=== PATIENT | female | born 1975 | race Caucasian/White ===

== ENCOUNTER 2016-10-27 10:06 | Emergency (ER) | payer OTHER ==
[~2016-10-27] VITALS: Ht 162.6 cm; Wt 75.3 kg
[2016-10-27 10:10] VITALS: BP 136/76
[2016-10-27] MEDS ORDERED: ACET-1082 PO (10:13)
[2016-10-27] MEDS ORDERED: IND20 PO (10:13)
--- NOTE | 2016-10-27 10:16 | NUR ---
Patient to bed 05.
--- NOTE | 2016-10-27 10:17 | NUR ---
40/F BIB DAUGHTER C/O RIGHT SIDED CHEST PAIN RADIAING TO RIGHT SHOULDER & R BACK X1 DAY WITH SOB;PT DENIES TRAUMA, N/V/D; SKIN IS PINK/WARM/DRY; AAOX4 WITH EVEN AND STEADY GAIT; LUNGS CLEAR BL; HR EVEN AND REGULAR; PT DENIES ANY FEVER OR COUGH AT THIS TIME; PATIENT STATES PAIN OF 7/10 AT THIS TIME; VSS; PATIENT POSITIONED FOR COMFORT; HOB ELEVATED; BEDRAILS UP X2; BED DOWN. ER MD MADE AWARE OF PT STATUS.
[2016-10-27] MEDS ORDERED: NITROGLYCERIN 0.4 MG TAB SL PRN (10:20)
[2016-10-27] MEDS ORDERED: ASPIRIN 81 MG TAB.CHEW PO ONE (10:20)
--- NOTE | 2016-10-27 10:20 | NUR ---
Dr. Wall evaluating patient at bedside.
[2016-10-27 10:38] LABS: HEMATOCRIT 35.6 % (36-48); HEMOGLOBIN 11.4 g/dL (12.0-16.0); MEAN CORPUSCULAR HEMOGLOBIN 25 pg (27-31); MEAN CORPUSCULAR HGB CONC 32 g/dL (33-37); MEAN CORPUSCULAR VOLUME 78 fL (80-94); PLATELET COUNT (AUTO) 288 K/uL (140-450); RED BLOOD CELL COUNT(AUTO) 4.55 MIL/uL (4.20-5.40); RED CELL DISTRIBUTION WIDTH 14.9 % (11.6-13.7); WHITE BLOOD COUNT (AUTO) 5.1 K/uL (4.8-10.8)
[2016-10-27 10:52] LABS: INR 1.1 (0.8-1.2); PARTIAL THROMBOPLASTIN TIME 26.8 secs (22-35.6); PROTHROMBIN TIME 10.2 secs (10.8-13.4)
[2016-10-27 10:54] LABS: ALBUMIN 3.7 g/dL (3.4-5.0); ANION GAP 12.1 (8-16); CARBON DIOXIDE 25.5 mmol/L (21-32); CREATININE 0.8 mg/dL (0.6-1.3); POTASSIUM 3.6 mmol/L (3.5-5.1); TOTAL BILIRUBIN 0.4 mg/dL (0.0-1.0); TOTAL PROTEIN, SERUM 7.8 g/dL (6.4-8.2)
[2016-10-27 10:55] LABS: EOSINOPHILS % (MANUAL) 17 % (0-4); LYMPHOCYTES % (MANUAL) 15 % (20-46); MONOCYTES % (MANUAL) 6 % (5-12); NEUTROPHILS % (MANUAL) 62 (43-65); PLATELET ESTIMATE ADEQUATE
[2016-10-27] MEDS ORDERED: KETOROLAC 30 MG/ML VIAL IVP ONE (11:50)
--- NOTE | 2016-10-27 12:00 | NUR ---
MEDICATION ADMINISTERED ORDERED.
[2016-10-27 13:12] VITALS: BP 115/82
--- NOTE | 2016-10-27 13:12 | NUR ---
Patient discharged with v/s stable. Written and verbal after care instructions given and explained. Patient alert, oriented and verbalized understanding of instructions. Ambulatory with steady gait. All questions addressed prior to discharge. ID band removed. Patient advised to follow up with PMD. Rx of NAPROXEN SODIUM given. Patient educated on indication of medication including possible reaction and side effects. Opportunity to ask questions provided and answered.
== END 2016-10-27 13:12 | disposition home or self-care (01) ==
LOC: MED 10:06
DX: M94.0 Chondrocostal junction syndrome [Tietze] (principal)
CPT/HCPCS: 36415; 71010; 80053; 81002; 81025; 83880; 84484; 85025; 85379; 85610; 85730; 93005; 96374; 99285; J1885; Q0092

== ENCOUNTER 2022-03-27 15:47 | Emergency (ER) | payer OTHER ==
[~2022-03-27] VITALS: Ht 161.3 cm; Wt 62.1 kg
[~2022-03-27 15:47] MED LIST: ACET-1082 PO; PROP20TA29 PO
[2022-03-27 16:17] VITALS: BP 121/60
[2022-03-27] MEDS ORDERED: ACETAMINOPHEN EXTRA STRENGTH 500 MG TAB PO ONE (17:30)
--- NOTE | 2022-03-27 17:34 | NUR ---
PT AMBULATED TO ER BED 6
--- NOTE | 2022-03-27 17:57 | NUR ---
HERE FOR LOWER BACK PAIN, REPORTS CHRONIC, WORSE FOR THREE DAYS PT SHOWS NO AC DISTRESS, O2 SAT 99% RA DENIES ANY RECENT INJURY
[2022-03-27] MEDS ORDERED: IBUP-2213 PO (18:56)
[2022-03-27] MEDS ORDERED: LID5T TP (18:56)
[2022-03-27] MEDS ORDERED: ACET-8386 PO (18:56)
[2022-03-27 19:07] VITALS: BP 118/78
--- NOTE | 2022-03-27 19:09 | NUR ---
Patient discharged with v/s stable. Written and verbal after care instructions given and explained. Patient verbalized understanding. Ambulatory with steady gait. All questions addressed prior to discharge. Advised to follow up with PMD. RX GIVEN
== END 2022-03-27 19:07 | disposition home or self-care (01) ==
LOC: MED 15:47
DX: S39.012A Strain of muscle, fascia and tendon of lower back, initial encounter (principal); I10 Essential (primary) hypertension; Z79.899 Other long term (current) drug therapy; Z79.1 Long term (current) use of non-steroidal anti-inflammatories (NSAID); Z79.891 Long term (current) use of opiate analgesic; X58.XXXA Exposure to other specified factors, initial encounter; Y92.89 Other specified places as the place of occurrence of the external cause; Y93.89 Activity, other specified; Y99.8 Other external cause status
CPT/HCPCS: 72100; 99283

== ENCOUNTER 2022-05-16 16:43 | Emergency (ER) | payer OTHER ==
[~2022-05-16] VITALS: Ht 162.6 cm; Wt 60.9 kg
[~2022-05-16 16:43] MED LIST changes: +ACET-8386 PO; +IBUP-2213 PO; +LID5T TP
[2022-05-16 17:22] VITALS: BP 133/74
--- NOTE | 2022-05-16 17:28 | NUR ---
Дмитрий walker in [facility] - 05/16/22 at 1729 by [email or web address] PT AMB TO BED 7.
--- NOTE | 2022-05-16 17:29 | NUR ---
PT AMB TO BED 10.
--- NOTE | 2022-05-16 17:39 | NUR ---
46/F WALKED IN C/O CHEST PAIN RADIATING TO LEFT ARM ONSET TODAY. PT WENT TO URGENT CARE AND HAD EKG DONE BUT WAS DC'D AND WAS RECOMMENDED TO VISIT ED. UNK EKG RESULT FROM URGENT CARE. AAO4 ,AMBULATORY, STATES LEFT ARM NUMBNESS. DENIES DIZZINESS. DENIES NVD. 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 IV ESTABLISHED TO RIGHT AC WITH 20G. EKG DONE AT BEDSIDE
[2022-05-16 17:53] LABS: BASOPHILS # (AUTO) 0.1 K/uL (0.00-0.22); BASOPHILS % (AUTO) 0.9 % (0.0-2.0); EOSINOPHILS # (AUTO) 0.3 K/uL (0-0.4); EOSINOPHILS % (AUTO) 5.3 % (0.0-4.0); HEMATOCRIT 34.7 % (36-48); LYMPHOCYTES # (AUTO) 0.6 K/uL (2.5-16.5); LYMPHOCYTES % (AUTO) 10.7 % (20.5-51.1); MEAN CORPUSCULAR HEMOGLOBIN 26 pg (27-31); MEAN CORPUSCULAR HGB CONC 32 g/dL (33-37); MEAN CORPUSCULAR VOLUME 83.4 fL (80-94); MONOCYTES # (AUTO) 0.3 K/uL (0.8-1.0); NEUTROPHILS # (AUTO) 4.5 K/uL (1.8-7.7); NEUTROPHILS % (AUTO) 77.1 % (42.2-75.2); PLATELET COUNT (AUTO) 257 K/uL (140-450); RED BLOOD CELL COUNT(AUTO) 4.17 MIL/uL (4.20-5.40); RED CELL DISTRIBUTION WIDTH 17.2 % (11.6-13.7); WHITE BLOOD COUNT (AUTO) 5.8 K/uL (4.8-10.8)
[2022-05-16] MEDS ORDERED: methocarbamoL 500 MG TAB PO STA (17:58)
[2022-05-16 18:24] LABS: ALBUMIN 3.7 g/dL (3.4-5.0); ANION GAP 13.9 (8-16); ASPARTATE AMINOTRANSFERASE 52 U/L (15-37); CARBON DIOXIDE 27.1 mmol/L (21-32); CHLORIDE 104 mmol/L (98-107); CREATININE 0.8 mg/dL (0.6-1.3); GFR ARICAN-AMERICAN 99 mL/min (>90); GLUCOSE 104 mg/dL (74-106); SODIUM SERUM 141 mmol/L (136-145); TOTAL BILIRUBIN 0.3 mg/dL (0.0-1.0); UREA NITROGEN, BLOOD 5 mg/dL (7-18)
[2022-05-16 19:10] VITALS: BP 121/73
[2022-05-16] MEDS ORDERED: METH-1681 PO (19:15)
[2022-05-16] MEDS ORDERED: LID5T TP (19:15)
--- NOTE | 2022-05-16 19:20 | NUR ---
Patient discharged with v/s stable. Written and verbal after care instructions given and explained. Patient verbalized understanding. Ambulatory with steady gait. All questions addressed prior to discharge. Advised to follow up with PMD.
== END 2022-05-16 19:20 | disposition home or self-care (01) ==
LOC: MED 16:43
DX: R07.9 Chest pain, unspecified (principal)
CPT/HCPCS: 36415; 71045; 80053; 81002; 81025; 82550; 84484; 85025; 99285; Q0092; 93005